=== PATIENT | male | born 1985 | race Caucasian/White ===

== ENCOUNTER 2022-01-24 11:39 | Outpatient (CLI) | payer BC, SELFPAY ==
[2022-01-24 21:56] LABS: Chloride* 101 mmol/L (96-114)
[2022-01-24 21:57] LABS: Sodium* 139 mmol/L (135-149)
[2022-01-24 21:59] LABS: Carbon Dioxide* 30 mmol/L (20-32); Estimated Glomerular Filt Rate 99 ml/min
[2022-01-24 22:00] LABS: Blood Urea Nitrogen* 17 mg/dL (5-24); Glucose* 93 mg/dL (60-115)
== END 2022-01-24 11:40 | disposition home or self-care (01) ==
LOC: LKVREF 11:40
PROVIDERS: PCP Family Medicine; Visit Provider Family Medicine
DX: R55 Syncope and collapse (principal); Z95.0 Presence of cardiac pacemaker
CPT/HCPCS: 80048

== ENCOUNTER 2022-07-20 09:03 | Outpatient (CLI) | payer BC, SELFPAY | END 2022-07-20 09:04 | disposition home or self-care (01) | PROVIDERS: PCP Family Medicine; Visit Provider Family Medicine | DX: Z00.00 Encounter for general adult medical examination without abnormal findings (principal); Z13.6 Encounter for screening for cardiovascular disorders | CPT/HCPCS: 80048; 80061 ==